=== PATIENT | male | born 1930 | race Hispanic/Latino ===

== ENCOUNTER → 2019-01-14 | Outpatient (CLI) | payer MEDICARE ==
[~2019-01-14] MED LIST: ASPI-1005 PO; BENA20TA10 PO; CARV3.1262 PO; CLOB30CR5 TP; DICL2100G TP; GABA-529 PO; HYDR12.530 PO; IBUP-2077 PO; NITR0.4T50 SL
== END | disposition home or self-care (01) ==
LOC: SHCH 11:37
PROVIDERS: ATTEND Internal Medicine Cardiovascular Disease
DX: I73.9 Peripheral vascular disease, unspecified (principal)
CPT/HCPCS: 93925

== ENCOUNTER → 2019-02-21 | Outpatient (CLI) | payer MEDICARE ==
[~2019-02-21] MED LIST changes: +IOHEXOL-350 50ML VIAL IV ONE
== END | disposition home or self-care (01) ==
LOC: RAH 08:00
PROVIDERS: ATTEND Internal Medicine Cardiovascular Disease
DX: I73.9 Peripheral vascular disease, unspecified (principal); K80.20 Calculus of gallbladder without cholecystitis without obstruction; I70.1 Atherosclerosis of renal artery; I25.10 Atherosclerotic heart disease of native coronary artery without angina pectoris
CPT/HCPCS: 75635; Q9967

== ENCOUNTER → 2019-06-06 | Outpatient (CLI) | payer MEDICARE ==
[~2019-06-06] VITALS: Ht 158.8 cm; Wt 70.6 kg
[~2019-06-06] MED LIST changes: +ACET-2123 PO; +ATOR-2 PO; +CILO100T PO; +CLOT30SO2 TP; -IOHEXOL-350 50ML VIAL IV ONE; +MOME45CR3 TP; +SODIUM CHLORIDE 0.9% 1000ML 1,000 ML IV SCH; +SODIUM CHLORIDE 0.9% 500ML 500 ML IV SCH
[2019-06-06 13:41] LABS: BASOPHILS % (AUTO) 0.5 % (0.0-5.0); EOSINOPHILS % (AUTO) 4.4 % (0.0-8.0); HEMATOCRIT 37.8 % (42-54); MEAN CORPUSCULAR HEMOGLOBIN 30.9 pg (27.0-33.0); MEAN CORPUSCULAR HGB CONC 32.5 g/dL (32.0-36.0); MONOCYTES % (AUTO) 11.7 % (3.0-13.0); NEUTROPHILS % (AUTO) 65.2 % (40.0-77.0); PLATELET COUNT (AUTO) 143 K/uL (130-400); RED BLOOD CELL COUNT(AUTO) 3.98 MIL/uL (4.50-6.20); WHITE BLOOD COUNT (AUTO) 6.4 K/uL (4.8-10.8)
[2019-06-06 13:46] LABS: APPEARANCE,URINE Clear (CLEAR); BILIRUBIN,URINE Negative (NEGATIVE); COLOR,URINE Yellow (YELLOW); GLUCOSE, URINE (UA) Negative (NEGATIVE); KETONES,URINE Negative (NEGATIVE); LEUKOCYTE ESTERASE ,URINE Negative (NEGATIVE); NITRATE,URINE Negative (NEGATIVE); OCCULT BLOOD,URINE Negative (NEGATIVE); PROTEIN,URINE Negative (NEGATIVE)
[2019-06-06 13:52] LABS: CREATININE 1.4 mg/dL (0.5-1.5); POTASSIUM 4.7 mmol/L (3.5-5.1)
[2019-06-06 13:56] VITALS: BP 184/67
[2019-06-06 13:56] LABS: INR 1.01 (0.85-1.15); PARTIAL THROMBOPLASTIN TIME 25.8 SEC (26.3-35.5); PROTHROMBIN TIME 10.6 SEC (9.6-11.6)
--- NOTE | 2019-06-07 13:44 | NUR ---
LABS CREA 1.[address] BARFIELD, FURTHER ORDERS GIVEN AND WILL BE CARRIED OUT
== END | disposition home or self-care (01) ==
LOC: DAH 10:00 → EDSTATUS 12:00
PROVIDERS: ATTEND Internal Medicine Cardiovascular Disease
DX: Z01.818 Encounter for other preprocedural examination (principal); I73.9 Peripheral vascular disease, unspecified; Z79.899 Other long term (current) drug therapy; Z83.3 Family history of diabetes mellitus; Z82.49 Family history of ischemic heart disease and other diseases of the circulatory system
CPT/HCPCS: 36415; 71045; 80048; 81003; 85025; 85610; 85730; 93005

== ENCOUNTER 2021-04-15 07:02 | Day surgery (SDC) | payer MEDICARE ==
[2021-04-12 09:08] LABS: EOSINOPHILS % (AUTO) 7.1 % (0.0-8.0); HEMATOCRIT 36.9 % (42-54); MEAN CORPUSCULAR HEMOGLOBIN 30.3 pg (27.0-33.0); MEAN CORPUSCULAR HGB CONC 33.1 g/dL (32.0-36.0); MEAN CORPUSCULAR VOLUME 91.6 fL (79-99); MONOCYTES % (AUTO) 9.7 % (3.0-13.0); PLATELET COUNT (AUTO) 171 K/uL (130-400); RED BLOOD CELL COUNT(AUTO) 4.03 MIL/uL (4.50-6.20); RED CELL DISTRIBUTION WIDTH 12.7 % (11.0-15.5)
[2021-04-12 09:19] LABS: INR 1.09 (0.85-1.15); PROTHROMBIN TIME 11.8 SEC (9.6-11.6)
[2021-04-12 09:20] LABS: PARTIAL THROMBOPLASTIN TIME 27.1 SEC (26.3-35.5)
[2021-04-12 09:24] LABS: CREATININE 1.3 mg/dL (0.5-1.5); POTASSIUM 4.5 mmol/L (3.5-5.1)
[2021-04-12 13:16] VITALS: BP 147/69
[~2021-04-15] VITALS: Ht 157.5 cm; Wt 65.4 kg
[2021-04-15] VITALS (10 sets, daily range): BP systolic 93–169; BP diastolic 42–78
[~2021-04-15 07:02] MED LIST changes: +0.9%NACL 1000ML 1,000 ML IV ONE; -ACET-2123 PO; +ACET-2743 PO; -ASPI-1005 PO; +BENA-8 PO; -BENA20TA10 PO; +BETA15OI2 TP; -CLOB30CR5 TP; +CLOP75TA32 PO; -CLOT30SO2 TP; +CYAN-52 PO; -DICL2100G TP; -HYDR12.530 PO; -IBUP-2077 PO; -MOME45CR3 TP; +NIFE30TA98 PO; -NITR0.4T50 SL; -SODIUM CHLORIDE 0.9% 1000ML 1,000 ML IV SCH; -SODIUM CHLORIDE 0.9% 500ML 500 ML IV SCH
[2021-04-15] MEDS ORDERED: NITROGLYCERIN 50MG VIAL IV ONE (11:24)
[2021-04-15] MEDS ORDERED: FENTANYL CITRATE PF 50 MCG/1 ML 2ML VIAL ONE (11:24)
[2021-04-15] MEDS ORDERED: HEPARIN 10,000 UNIT/10ML (1,000 UNIT/ML) VIAL ONE (11:34)
[2021-04-15] MEDS ORDERED: IODIXANOL 320 MG/ML 100 ML VIAL ONE ×2 (11:34→11:41)
[2021-04-15] MEDS ORDERED: LIDOCAINE HCL 400MG/20ML VIAL ONE (11:35)
[2021-04-15] MEDS ORDERED: MIDAZOLAM HCL 1 MG/ML 2ML VIAL ONE (11:35)
[2021-04-15] MEDS ORDERED: CLOPIDOGREL 300MG TAB ONE (12:12)
[2021-04-15] MEDS ORDERED: ASPIRIN 325MG EC TAB PO ONE (12:12)
[2021-04-15] MEDS ORDERED: HYDRALAZINE 20MG/ML VIAL ONE (13:07)
[2021-04-15] MEDS ORDERED: ATROPINE 1MG SYG IVP ONE (13:35)
[2021-06-28] MEDS ORDERED: CETI10TA57 PO (10:21)
[2021-06-28] MEDS ORDERED: NIFE-39 PO (10:21)
[2021-06-28] MEDS ORDERED: VITAMIN D PO (10:24)
[2021-06-28] MEDS ORDERED: SODI30SP3 NS (10:24)
== END 2021-04-15 18:25 | disposition home or self-care (01) ==
LOC: DAH 07:02
PROVIDERS: ATTEND Internal Medicine Cardiovascular Disease
DX: I70.212 Atherosclerosis of native arteries of extremities with intermittent claudication, left leg (principal); I12.9 Hypertensive chronic kidney disease with stage 1 through stage 4 chronic kidney disease, or unspecified chronic kidney disease; N18.30 Chronic kidney disease, stage 3 unspecified; I25.10 Atherosclerotic heart disease of native coronary artery without angina pectoris; E78.5 Hyperlipidemia, unspecified; Z79.01 Long term (current) use of anticoagulants; Z95.5 Presence of coronary angioplasty implant and graft; Z87.891 Personal history of nicotine dependence; Z98.890 Other specified postprocedural states
CPT/HCPCS: 36247; 36415 ×2; 71045; 75716; 80048; 85025; 85347; 85610; 85730; A4215; A4216; A4221; A4222; A4223 ×3; A4606; A4663; C1760; C1769 ×2; C1887 ×2; C1893; C1894 ×2; J0360; J0461; J1644 ×2; J2250; J3010; J3490 ×2; J7030; Q9967 ×2; 37224; 93005; 99156; 99157

== ENCOUNTER 2021-07-01 05:57 | Day surgery (SDC) | payer MEDICARE ==
[2021-06-27 11:12] LABS: BASOPHILS % (AUTO) 0.7 % (0.0-5.0); EOSINOPHILS % (AUTO) 6.5 % (0.0-8.0); HEMATOCRIT 40.6 % (42-54); LYMPHOCYTES % (AUTO) 18.1 % (21.0-51.0); MEAN CORPUSCULAR HEMOGLOBIN 30.9 pg (27.0-33.0); MEAN CORPUSCULAR HGB CONC 32.5 g/dL (32.0-36.0); MEAN CORPUSCULAR VOLUME 95.1 fL (79-99); NEUTROPHILS % (AUTO) 65.5 % (40.0-77.0); PLATELET COUNT (AUTO) 170 K/uL (130-400); RED BLOOD CELL COUNT(AUTO) 4.27 MIL/uL (4.50-6.20); RED CELL DISTRIBUTION WIDTH 13.5 % (11.0-15.5); WHITE BLOOD COUNT (AUTO) 5.9 K/uL (4.8-10.8)
[2021-06-27 11:39] LABS: CREATININE 1.1 mg/dL (0.5-1.5); POTASSIUM 4.1 mmol/L (3.5-5.1)
[2021-06-27 11:41] LABS: APPEARANCE,URINE Clear (CLEAR); BILIRUBIN,URINE Negative (NEGATIVE); COLOR,URINE Yellow (YELLOW); GLUCOSE, URINE (UA) Negative (NEGATIVE); KETONES,URINE Negative (NEGATIVE); LEUKOCYTE ESTERASE ,URINE Negative (NEGATIVE); NITRATE,URINE Negative (NEGATIVE); OCCULT BLOOD,URINE Negative (NEGATIVE); PH,URINE 5.5 (5.0-8.0); PROTEIN,URINE Negative (NEGATIVE); UROBILINOGEN,URINE 0.2 mg/dL (0.2-1.0)
[2021-06-27 11:42] LABS: INR 1.07 (0.85-1.15); PROTHROMBIN TIME 11.6 SEC (9.6-11.6)
[2021-06-27 11:44] LABS: PARTIAL THROMBOPLASTIN TIME 26.9 SEC (26.3-35.5)
[2021-06-28 09:45] VITALS: BP 142/70
[2021-07-01] VITALS (9 sets, daily range): BP systolic 121–157; BP diastolic 57–69
[~2021-07-01] VITALS: Ht 157.5 cm; Wt 66.2 kg
[~2021-07-01 05:57] MED LIST changes: -0.9%NACL 1000ML 1,000 ML IV ONE; +CETI10TA57 PO; +NIFE-39 PO; -NIFE30TA98 PO; +SODI30SP3 NS; +VITAMIN D PO
[2021-07-01] MEDS ORDERED: NICARDIPINE 25MG INJ IV ONE (07:10)
[2021-07-01] MEDS ORDERED: HEPARIN 10,000 UNIT/10ML (1,000 UNIT/ML) VIAL ONE (07:10)
[2021-07-01] MEDS ORDERED: FENTANYL CITRATE PF 50 MCG/1 ML 2ML VIAL ONE (07:10)
[2021-07-01] MEDS ORDERED: NITROGLYCERIN 50MG VIAL ONE (07:10)
[2021-07-01] MEDS ORDERED: MIDAZOLAM HCL 1 MG/ML 2ML VIAL ONE (07:10)
[2021-07-01] MEDS ORDERED: LIDOCAINE HCL 400MG/20ML VIAL ONE (07:11)
[2021-07-01] MEDS ORDERED: IOHEXOL 350 MG/ML 100ML INFUS..BTL IV ONE (07:17)
[2021-07-01] MEDS ORDERED: IODIXANOL 320 MG/ML 100 ML VIAL ONE (07:28)
[2021-07-01] MEDS ORDERED: 0.9%NACL 1000ML 1,000 ML IV SCH (08:00)
== END 2021-07-01 12:45 | disposition home or self-care (01) ==
LOC: DAH 05:57
PROVIDERS: ATTEND Internal Medicine Cardiovascular Disease
DX: I70.212 Atherosclerosis of native arteries of extremities with intermittent claudication, left leg (principal); I12.9 Hypertensive chronic kidney disease with stage 1 through stage 4 chronic kidney disease, or unspecified chronic kidney disease; N18.30 Chronic kidney disease, stage 3 unspecified; I25.10 Atherosclerotic heart disease of native coronary artery without angina pectoris; E78.5 Hyperlipidemia, unspecified; Z87.891 Personal history of nicotine dependence; Z98.890 Other specified postprocedural states; Z79.899 Other long term (current) drug therapy; Z79.01 Long term (current) use of anticoagulants
CPT/HCPCS: 36246; 36415; 71045; 75716; 80048; 81003; 85025; 85610; 85730; 93005; A4215; A4216; A4221; A4222; A4223 ×3; A4606; A4663; C1760; C1769; C1894 ×2; J1644; J2250; J3010; J3490 ×3; Q9967; 99156; 99157